=== PATIENT | female | born 1990 | race Two or more races ===

== ENCOUNTER 2020-05-18 09:43 | Observation (INO) | payer OTHER ==
[~2020-05-18] VITALS: Ht 160 cm; Wt 59.0 kg
--- NOTE | 2020-05-18 10:00 | NUR ---
PT RESTING IN [facility] AT THIS TIME AND ATTACHED TO ALL VS MONITORS. PT VSS. DR LOPEZ AT FOR PT HISTORY AND ASSESSMENT. PT EDUCATED ON ER PROCESS AND POC AND VERBALIZES UNDERSTANDING. PT DENIES ANY NEEDS AT THIS TIME. CALL LIGHT IS WITHIN REACH OF PT.
--- NOTE | 2020-05-18 10:23 | NUR ---
IV FLUIDS RUNNING PER MAY. PIV ACCESS ESTABLISHED. LABS COLLECTED AND SENT TO LAB.
[2020-05-18] MEDS ORDERED: SODIUM CHLORIDE FLUSH 10ML SYR IVF ONE (10:30)
[2020-05-18] MEDS ORDERED: SODIUM CHLORIDE 0.9% 1,000ML IVBOLUS ONE (10:30)
[2020-05-18 10:35] LABS: BASOPHILS % (AUTO) 1 % (0-1); EOSINOPHILS % (AUTO) 5 % (1-7); LYMPHOCYTES % (AUTO) 17 % (22-44); MD NO; MEAN CORPUSCULAR HEMOGLOBIN 31.8 pg (27.0-34.8); MEAN CORPUSCULAR HGB CONC 34.2 g/dL (32.4-35.8); MEAN PLATELET VOLUME 8.9 fL (7.4-10.4); MONOCYTES % (AUTO) 6 % (2-9); NEUTROPHILS % (AUTO) 71 % (42-75); PLATELET COUNT 302 x10^3/uL (130-400); RED BLOOD COUNT 4.25 x10^6/uL (3.82-5.3); RED CELL DISTRIBUTION WIDTH 12.3 % (9.6-15.2)
[2020-05-18 10:42] LABS: ALBUMIN 4.2 g/dL (3.4-5.0); ANION GAP 8 mmol/L (5-15); CALCIUM 9.4 mg/dL (8.5-10.1); CHLORIDE 108 mmol/L (98-107); CREATININE 0.81 mg/dL (0.55-1.02)
--- NOTE | 2020-05-18 10:49 | NUR ---
PT VSS AND UPDATED IN EMR AT THIS TIME.
--- NOTE | 2020-05-18 12:10 | NUR ---
REPORT OF PT TO BAKARI AVALOS. PT RESTING IN [facility] AFTER NEAR SYNCOPAL EVENT. DR LOPEZ CALLED TO BS AT THIS TIME. VERBAL ORDERS FOR PRBC RECEIVED AT THIS TIME. PT AND FAMILY EDUCATED ABOUT PLAN AND VERBALIZE UNDERSTANDING. CONSENT PAPERWORK RETRIEVED AND HANDED TO BAKARI AVALOS TO COMPLETE AT THIS TIME. 2ND PIV ACCESS ESTABLISHED.
--- NOTE | 2020-05-18 12:18 | NUR ---
RN X 2 AT BEDSIDE TO PREPARE BLOOD TRANSFUSION AND PREP PT FOR PELVIC. PT ALERT AND RESPONSIVE, STILL PALE BUT ABLE TO CONTROL HER BREATHING WITH COACHING. PT DENIES PAIN AT THIS TIME. WARMER IN PLACE.
--- NOTE | 2020-05-18 12:23 | NUR ---
NS BOLUS COMPLETE, PT STILL PALE AND HYPOENTENSIVE, 89/44 WITH PT IN [place]. PT STILL RESPONDS APPROPRIATELY, ABLE TO SIGN CONSENT FOR BLOOD TRANSFUSION.
[2020-05-18 12:30] VITALS: BP 91/45
[2020-05-18 12:45] VITALS: BP 93/52
[2020-05-18 13:00] VITALS: BP 84/48
--- NOTE | 2020-05-18 13:02 | NUR ---
MD IN ROOM TO DO PELVIC, PROCEDURE WELL TOLERATED BY PT, ABLE TO REMOVE LARGE CLOTS. BLOOD TRANSFUSION COMPLETE, PT REPORTS FEELING BETTER, NOW SATTING WELL ON ROOM AIR, DENIES PAIN OR DISCOMFORT AT THIS TIME. NO SIGNS OR SYMPTOMS OF ACUTE DSITRESS NOTED RESPIRATIONS EVEN AND UNLABORED. RAPID COVID SWAB DONE IN ANTICIPATION OF PT GOING TO OR WITH OB. PT IN BED WITH CARDIAC MONTIOR IN PLACE, BED IN [place] POSITION. BED RAILS UP BILATERALLY AND S/O AT BEDSIDE.
[2020-05-18 14:12] VITALS: BP 84/43
[2020-05-18] MEDS ORDERED: OXYTOCIN 10 UNITS/ML, 1ML ONE (14:18)
[2020-05-18] MEDS ORDERED: METHYLERGONOVINE 0.2 MG/ML IM ONE (14:18)
[2020-05-18] MEDS ORDERED: MISOPROSTOL 200 MCG TABLET ONE (14:18)
[2020-05-18] MEDS ORDERED: SILVER NITRATE STICK TP ONE (14:18)
--- NOTE | 2020-05-18 14:29 | NUR ---
REPORT CALLED TO OR, PT WILL BE PICKED UP SHORTLY. RN IN OR STATES THAT IF BLOOD SHOWS UP BEFORE TRANSPORT PT CAN START IT, OTHERWISE THEYLL START THE UNIT IN OR. PT IN BED WITH NO SIGNS OR SYMPTOMS OF ACUTE DSITRESS NOTED STATES SHE NEEDS TO VOID, RN IN ROOM TO PUT PT UP ON BEDPAN, ONE LARGE VOID NOTED. 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 PT DENIES PAIN OR DISCOMFORT AT THIS TIME NO SIGNS OR SYMPTOMS OF ACUTE DSITRESS NOTED RESPIRATIONS EVEN AND UNLABORED
[2020-05-18] MEDS ORDERED: LACTATED RINGERS 1,000 ML IVBOLUS ONE (14:30)
[2020-05-18] MEDS ORDERED: FENTANYL PF 100 MCG/2ML ONE (14:47)
[2020-05-18] MEDS ORDERED: CHLORHEXIDINE 15 ML UDC ONE (14:47)
[2020-05-18] MEDS ORDERED: MIDAZOLAM 1 MG/ML, 2ML ONE (14:47)
[2020-05-18] MEDS ORDERED: ACETAMINOPHEN 325 MG TABLET PO PRN (15:00)
[2020-05-18] MEDS ORDERED: hydrALAzine 20 MG/ML, 1ML IV PRN (15:00)
[2020-05-18] MEDS ORDERED: OXYcodone 5 MG/5 ML ORAL.SOL UDC PO PRN (15:00)
[2020-05-18] MEDS ORDERED: HYDROmorphone 1 MG/ML, 1ML INJ IVPush PRN (15:00)
[2020-05-18] MEDS ORDERED: PROMETHAZINE 25 MG/ML, 1ML IVPush PRN (15:00)
[2020-05-18] MEDS ORDERED: FENTANYL PF 100 MCG/2ML IV PRN (15:00)
[2020-05-18] MEDS ORDERED: LABETALOL 5MG/ML, 20ML IV PRN (15:00)
[2020-05-18] MEDS ORDERED: EPHEDRINE 50 MG/ML, 1ML IVPush PRN (15:00)
[2020-05-18] MEDS ORDERED: ONDANSETRON 2MG/ML, 2ML IVPush PRN (15:00)
[2020-05-18] MEDS ORDERED: LACTATED RINGERS 1,000 ML IV SCH (15:00)
[2020-05-18] MEDS ORDERED: CHLORHEXIDINE 15 ML UDC MM ONE (15:00)
[2020-05-18] MEDS ORDERED: DEXAMETHASONE 4 MG/ML, 5ML ONE (15:15)
[2020-05-18] MEDS ORDERED: PROPOFOL 10 MG/ML, 20ML ONE (15:15)
[2020-05-18] MEDS ORDERED: PHENYLEPHRINE 10 MG/ML ONE (15:15)
[2020-05-18] MEDS ORDERED: SUCCINYLCHOLINE 20 MG/ML, 10ML ONE (15:15)
[2020-05-18] MEDS ORDERED: ONDANSETRON 2MG/ML, 2ML ONE (15:15)
== END 2020-05-18 17:55 | disposition home or self-care (01) ==
LOC: MERGE 09:43 → ED 11:13 → UNDOADMOB 14:14 → EDIP 14:14 → INTOOBSV 14:14 → UNDODISOB 14:37 → EDIP 15:30
PROVIDERS: ADMIT Obstetrics & Gynecology; ATTEND Obstetrics & Gynecology
DX: O03.4 Incomplete spontaneous abortion without complication (principal); Z20.822 Contact with and (suspected) exposure to COVID-19; O03.31 Shock following incomplete spontaneous abortion; Z79.899 Other long term (current) drug therapy
CPT/HCPCS: 36415; 36430; 59812; 76801; 80048; 82040; 84702; 85025; 86850; 86900; 86923; 87635; 88305; 96360; 99291; G0378; J0330; J1100; J2250; J2370; J2405; J2704; J3010; J7030; J7120; P9016; J2210; J2590